=== PATIENT | male | born 1950 | race Caucasian/White ===

== ENCOUNTER → 2020-07-24 00:01 | Outpatient (BNVA) | payer MEDICARE, MEDICAID, SELFPAY | PROVIDERS: Family Provider Nurse Practitioner Family; PCP Nurse Practitioner Family; Visit Provider Registered Nurse | DX: J01.10 Acute frontal sinusitis, unspecified (principal); R53.82 Chronic fatigue, unspecified; E16.2 Hypoglycemia, unspecified | CPT/HCPCS: 80053; 80061; 82947; 83036 ==

== ENCOUNTER → 2021-03-22 16:38 | Outpatient (BNVA) | payer MEDICARE, MEDICAID, SELFPAY | PROVIDERS: Family Provider Nurse Practitioner Family; PCP Nurse Practitioner Family; Visit Provider Registered Nurse | DX: R63.0 Anorexia (principal); F41.9 Anxiety disorder, unspecified; E53.8 Deficiency of other specified B group vitamins; E55.9 Vitamin D deficiency, unspecified; K59.00 Constipation, unspecified | CPT/HCPCS: 80053; 82306; 82607; 84443; 85025 ==

== ENCOUNTER → 2021-11-05 09:57 | Outpatient (BNVA) | payer MEDICARE, MEDICAID, SELFPAY | PROVIDERS: Family Provider Nurse Practitioner Family; PCP Registered Nurse; Visit Provider Nurse Practitioner Family | DX: F41.9 Anxiety disorder, unspecified (principal); R53.83 Other fatigue | CPT/HCPCS: 80053; 84439; 84443; 85025 ==

== ENCOUNTER 2022-05-12 13:32 | Outpatient (CLI) | payer MEDICARE, MEDICAID, SELFPAY ==
--- NOTE | 2022-05-12 14:07 | USCV_ITS ---
Jonah Hutton Age: 72 Gender: M : 1950 Exam Date: 05/12/2022 14:30 Ordering Phys: Becca Rollins MD Technologist: Bradford Abraham [place] [facility] [place]: chronic ulcer Risk Factors: Previous Vascular Surgery: RIGHT LEFT BP: 164.0 / 102.00 BP: 173.0/ 83.00 0 0 Waveform Velocity (cm/s) Velocity (cm/s) Waveform Triphasic 74.2 Iliac Prox Triphasic 71.8 Iliac Mid Triphasic 84.9 Iliac Distal Triphasic [employer] 56.1 Triphasic 100.8 SFA Prox Biphasic 70.3 SFA Mid Biphasic 76.2 SFA Dist Biphasic 60.5 POP Biphasic 73.8 DIRECTOR [employer] Biphasic 51.9 DPA 1.0 ДМИТРИЙ FINDINGS Resting ДМИТРИЙ of 1.0 on the right side Normal Doppler flow velocities Biphasic Doppler waveforms in the mid to distal SFA, popliteal and infrapopliteal vessels CONCLUSIONS Normal resting ДМИТРИЙ with near normal arterial Doppler waveforms on the right side. No significant arterial obstruction, based on the above findings Dr Carter Mcdonald MD FACC (Electronically Signed) Final Date: 12 May 2022 19:42 S
== END 2022-05-12 13:33 | disposition home or self-care (01) ==
LOC: RAD 13:40
PROVIDERS: PCP Registered Nurse; Visit Provider Family Medicine
DX: L97.512 Non-pressure chronic ulcer of other part of right foot with fat layer exposed (principal)
CPT/HCPCS: 93926

== ENCOUNTER → 2022-08-02 09:46 | Outpatient (BNVA) | payer MEDICARE, MEDICAID, SELFPAY | PROVIDERS: PCP Registered Nurse; Visit Provider Nurse Practitioner Family | DX: Z98.890 Other specified postprocedural states (principal); L97.509 Non-pressure chronic ulcer of other part of unspecified foot with unspecified severity | CPT/HCPCS: 73630 ==

== ENCOUNTER → 2022-08-10 10:32 | Outpatient (BNVA) | payer MEDICARE, MEDICAID, SELFPAY | PROVIDERS: PCP Registered Nurse; Visit Provider Podiatrist Foot & Ankle Surgery | DX: T84.84XA Pain due to internal orthopedic prosthetic devices, implants and grafts, initial encounter (principal); Y79.2 Prosthetic and other implants, materials and accessory orthopedic devices associated with adverse incidents; L97.512 Non-pressure chronic ulcer of other part of right foot with fat layer exposed | CPT/HCPCS: 99204 ==

== ENCOUNTER → 2022-08-31 07:29 | Outpatient (BNVA) | payer MEDICARE, MEDICAID, SELFPAY | PROVIDERS: PCP Registered Nurse; Visit Provider Podiatrist Foot & Ankle Surgery | DX: T84.84XA Pain due to internal orthopedic prosthetic devices, implants and grafts, initial encounter (principal); L97.512 Non-pressure chronic ulcer of other part of right foot with fat layer exposed; Y79.2 Prosthetic and other implants, materials and accessory orthopedic devices associated with adverse incidents | CPT/HCPCS: 99213 ==

== ENCOUNTER 2022-09-09 08:19 | Day surgery (SDC) | payer MEDICARE, MEDICAID, SELFPAY ==
[2022-09-08 11:55] VITALS: BMI 24.4
[2022-09-09] VITALS (7 sets, daily range): BP systolic 119–160; BP diastolic 75–96; PULSE 57–62; RESP 10–18; TEMP 36.1–36.6; O2SAT 96–98
[2022-09-09] MEDS: sodium chloride 0.9% 1,000 ML 30 ML IV (09:38)
--- NOTE | 2022-09-09 10:10 | P.ANESASSM_ITS ---
Pre-Anesthetic Assessment Height/Weight: Height 1.83 m Weight 81.647 kg Temp Pulse Resp BP Pulse Ox O2 Del Method 97.5 F L 62 18 151/92 98 Room Air 09/09/22 09:13 09/09/22 09:13 09/09/22 09:13 09/09/22 09:13 09/09/22 09:13 09/09/22 09:17 Preop Diagnosis: Painful hardware right foot Operation Date: 09/09/22 11:20 Proposed Procedures p Deep hardware removal right foot 40710 X2 T84.84XA(Right) - Schuyler Cerna DPM Familial anesthetic complications: none Was Beta Vy taken within 24 hours: Yes Was Clonidine taken within 24 hours: N/A Last intake: Intake Last Liquid Date 09/08/22 Last Liquid Time 21:00 Last Solid Date 09/08/22 Last Solid Time 21:00 Social No alcohol and No tobacco (h/o smoking) Exam alert, oriented x 3, clear to auscultation bilaterally and regular rate & rhythm Airway Submandibular: within normal limits Cervical ROM: within normal limits Mallampati: Class II Dentition: chipped GI Gastroesophageal Reflux Disease [facility] [place] Osteoarthritis/DJD Neuropsych Anxiety and Depression TBI Anesthetic Plan ASA status: 2 Anesthesia: Choice Medications/Allergies Home Medications Medication Instructions Recorded Confirmed Last Taken Type clonazepam 0.25 mg disintegrating 0.25 mg PO Q8H PRN anxiety 30 days 04/04/22 09/09/22 09/08/22 Rx tablet #30 tabs mupirocin 2 % topical ointment 1 applic topical BID 2 weeks #22 08/10/22 09/08/22 Unknown Rx grams magnesium citrate 150 ml PO DAILY PRN constipation 08/26/22 09/08/22 Unknown Rx #296 mL diclofenac sodium 1 % topical gel 2 g topical QID PRN Pain 09/08/22 09/08/22 Unknown History (Voltaren Arthritis Pain) metoprolol tartrate 50 mg tablet 50 mg PO DAILY 09/08/22 09/08/22 09/08/22 08:00 History Allergies Allergy/AdvReac Type Severity Reaction Status Date / Time No Known Allergies Allergy Verified 08/31/22 07:51 Current Medications Generic Name Dose Route Start Last Admin Trade Name Freq PRN Reason Stop Dose Admin Sodium Chloride 1,000 mls @ 30 mls/hr 09/09/22 09:15 09/09/22 09:38 Sodium Chloride 0.9% IV 09/10/22 09:14 30 mls/hr .Q24H ELIAN Administration PFSH Anesthesia Medical History Anxiety GERD (gastroesophageal reflux disease) Osteoarthritis (arthritis due to wear and tear of joints) Traumatic leg injury Surgical History H/O neck surgery Family History Mother CAD (coronary artery disease) Hypertension Diabetes Father Hypertension Diabetes Social History Smoking and tobacco status: never smoked Quit status (tobacco): has quit using tobacco Second hand smoke exposure: No Smoking risk assessment/counseling performed?: No Alcohol intake: never Desire information about alcohol rehabilitation?: No Counseling given: No Desire information about substance/drug rehabilitation?: No Counseling given: No Lives independently: Yes Marital status: single Current gender identity: Male Data Anesthesia Cardiac Studies: No Data to Display
--- NOTE | 2022-09-09 11:10 | W.PM.OPSUD ---
Surgery/Procedure H&P Update DATE OF PROCEDURE: September 09, 2022 DATE H&P PERFORMED: 08/31/22 CHANGES TO PREVIOUS DOCUMENTATION: none PREOP DIAGNOSIS: Painful hardware right foot PLANNED PROCEDURE: Operation Date: 09/09/22 11:20 Proposed Procedures p Deep hardware removal right foot 78988 X2 T84.84XA(Right) - Schuyler Cerna DPM
[2022-09-09] MEDS: ceFAZolin 2,000 MG in sodium chloride 0.9% (plus) 50 ML 100 MG IV (11:29)
--- NOTE | 2022-09-09 11:59 | SUR.OPER ---
1200 one screw left in right foot per dr. resendiz
--- NOTE | 2022-09-09 12:11 | P.OP_ITS ---
Operative Report Date of procedure: September 09, 2022 Pre-op diagnosis: Painful retained hardware right foot first ray. Painful retained hardware right foot second ray Post-op diagnosis: Same Post-op findings: Same Procedure done: Deep for removal right foot first ray. CPT code 78293 Deep hardware removal right foot second ray. CPT code 23458 Implants: 4-0 nylon Specimens removed/disposition: Plate and 5 screws removed from medial cuneiform and first metatarsal Plate and 4 screws removed from intermediate cuneiform and second metatarsal, separate incision Pathology: None Surgeon: None Histologic Technician: Lillian Estimated blood loss: 5 26 IV fluids: None Urine output: None Complications: None Brief History: No wounds at today's visit.? Tenting and palpable painful hardware.? Patient examined and evaluated, findings and treatment options were discussed with patient at length.? Due to diminished pedal pulse at the posterior tibial artery ankle-brachial indices were performed at today's visit along with wave forms, this was for baseline evaluation as well as preoperative planning.? Right ankle- brachial index is 1.15 and left ankle-brachial index is 1.08.? Right toe brachial index is 0.88 and left toe brachial index is 1.02.? Patient's ABIs and TBI's are normal.? Waveforms available and scanned in the patient's chart.? Patient is having pain associated with hardware of his right foot and a nonhealing wound also associate with hardware.? Is requesting hardware movable.? X-ray of the right foot taken 08/02/2022 shows bony healing at the right first and second rays.? Prominent hardware also visualized both at the first and second rays with backed out screws.? No fragmented or failed hardware appreciated.? I reviewed at length with the patient, the risks, potential complications, benefits, alternatives, expectations, and typical outcomes associated with the surgery. The risks and potential complications were explained in detail, including but not limited to infection, wound dehiscence or soft tissue complications, bleeding and hematoma, chronic edema, neuritis or nerve damage producing numbness or chronic pain, CRPS, failure to relieve pain or worsening pain, thick / painful / unsightly scar, limited motion / stiffness, malposition, delayed union, malunion, or nonunion, fracture, reaction to implants, anesthetic complications, venous thromboembolism, and deformity recurrence.? I discussed the notion of no regrets with the patient as it pertains to complications and outcomes. The patient seemed to understand the nature of the proposed care and required convalescence. They asked appropriate questions, answered to their satisfaction. They are aware no guarantees can be made as to a satisfactory outcome and they understand there may be other possible unforeseen complications or outcomes not listed here that will be treated accordingly if they arise. There were no written or implied guarantees given to the patient. They gave informed consent to proceed. Procedure: Under my sedation the patient was brought to the operating room and remained on the gurney in supine position. A timeout was performed. Anesthesia was then administered by the anesthesia service. Local anesthesia was injected by myself right ankle block utilizing 0.5% Marcaine plain this was a five-point block, total of 20 cc utilized. 10 cc of Exparel infiltrated at the dorsal and medial aspect of the right foot subcutaneously in a grid like fashion. Well-padded pneumatic tourniquet was applied to the right ankle. The right lower extremity was scrubbed, prepped and draped utilizing normal aseptic technique. Right foot was extenuated with an Esmarch bandage and the tourniquet was then inflated to 250 mmHg. Attention was directed to the dorsal medial aspect of the right foot where a linear longitudinal incision made over the dorsal medial aspect of the medial cuneiform and first metatarsal over the previous cicatrix. Hardware was noted to be proud and palpable and tenting skin at this area. Incision was carried through skin with a #15 blade with dissection carried down through subcutaneous tissue to the layer of hardware utilizing blunt and sharp technique. Care was taken to retract and preserve neurovascular and tendinous structures. All bleeders were ligated and cauterized as necessary. Total of 5 screws and 1 plate were removed from bone at the medial cuneiform and first metatarsal, all rough edges were smoothed with a hand rasp and the incision was irrigated with copious muscle sterile saline solution. Given the amount of fibrosing a single layer closure was deemed best and this was performed with 4-0 nylon. Attention was then directed to the dorsal right foot where at the level of the second metatarsal and intermediate cuneiform a another separate incision was performed linear and longitudinal in fashion with a #15 blade directly over palpable and prominent hardware of the second metatarsal and intermediate cuneiform this was performed through skin with a 15 blade and carried down through subcutaneous tissue to the layer of hardware, significant fibrosing was appreciated. Total of 4 screws and the plate was removed and passed from the operative field. An interfrag screw was not encountered and not deemed to be prominent or problematic and was left intact at the second metatarsal. The incision was irrigated with copious amounts of sterile saline solution and closed due to fibrosing in a single layer fashion with 4-0 nylon. Both incisions were then dressed with Adaptic, sterile 4 x 4's, Kerlix and Kirill wrap followed by application of a postop shoe to the right foot. Tourniquet was deflated and a prompt hyperemic response was noted to the distal digits of the right foot. Patient tolerated the procedure and anesthesia well and was transferred to the PACU with vital signs stable and vascular status intact. Following a period of postoperative monitoring he will be discharged home. We will reduce his activity, rest and elevate his right foot. Was given at home care instructions, schedule follow-up in my cell phone number to contact with any postoperative questions or concerns.
--- NOTE | 2022-09-09 12:13 | PC.NURSE ---
Pt arrived to PACU, awake, dressing to right foot C/D/I, right toes p/w/d, cap refill <3 seconds, able to wiggles toes.
--- NOTE | 2022-09-09 13:50 | ANE.PACU2 ---
Inpatient post-anesthesia follow up: Airway intact: Yes Vital signs: Temperature 97.8 F Pulse Rate 57 Respiratory Rate 16 Blood Pressure 155/79 Pulse Oximetry 97 Oxygen Delivery Me thod Room Air Oxygen Flow Rate Fraction of Inspir ed Oxygen Hydration adequate: Yes Nausea and vomiting: No Pain level: 1 Mental status: Baseline
== END 2022-09-09 13:15 | disposition home or self-care (01) ==
PROVIDERS: PCP Registered Nurse; Visit Provider Podiatrist Foot & Ankle Surgery
PROC: (CPT 20680; principal; 2022-09-09 11:10)
DX: T84.84XA Pain due to internal orthopedic prosthetic devices, implants and grafts, initial encounter (principal); Y79.2 Prosthetic and other implants, materials and accessory orthopedic devices associated with adverse incidents; L97.512 Non-pressure chronic ulcer of other part of right foot with fat layer exposed; K21.9 Gastro-esophageal reflux disease without esophagitis; M19.90 Unspecified osteoarthritis, unspecified site; F41.9 Anxiety disorder, unspecified; F32.A Depression, unspecified
CPT/HCPCS: 20680 ×2; C9290; J0690; J2250; J2704; J3010; J3490; J7030

== ENCOUNTER → 2022-09-22 07:22 | Outpatient (BNVA) | payer MEDICARE, MEDICAID, SELFPAY | PROVIDERS: PCP Registered Nurse; Visit Provider Podiatrist Foot & Ankle Surgery | DX: Z98.890 Other specified postprocedural states (principal); Z48.89 Encounter for other specified surgical aftercare; L97.512 Non-pressure chronic ulcer of other part of right foot with fat layer exposed | CPT/HCPCS: 99024 ==

== ENCOUNTER → 2022-10-07 10:41 | Outpatient (BNVA) | payer MEDICARE, MEDICAID, SELFPAY | PROVIDERS: PCP Registered Nurse; Visit Provider Podiatrist Foot & Ankle Surgery | DX: L97.512 Non-pressure chronic ulcer of other part of right foot with fat layer exposed (principal); Z98.890 Other specified postprocedural states | CPT/HCPCS: 99024 ==

== ENCOUNTER → 2022-10-26 11:38 | Outpatient (BNVA) | payer MEDICARE, MEDICAID, SELFPAY | PROVIDERS: PCP Registered Nurse; Visit Provider Registered Nurse | DX: I10 Essential (primary) hypertension (principal); R53.83 Other fatigue; E55.9 Vitamin D deficiency, unspecified; E78.5 Hyperlipidemia, unspecified; E53.8 Deficiency of other specified B group vitamins | CPT/HCPCS: 80053; 80061; 82306; 82607; 85025 ==

== ENCOUNTER → 2023-07-28 08:22 | Outpatient (BNVA) | payer MEDICARE, MEDICAID, SELFPAY | PROVIDERS: PCP Registered Nurse; Visit Provider Nurse Practitioner Family | DX: E16.2 Hypoglycemia, unspecified (principal); M47.892 Other spondylosis, cervical region | CPT/HCPCS: 80053; 83036; 84439; 84443; 85025 ==

== ENCOUNTER → 2023-08-02 08:20 | Outpatient (BNVA) | payer MEDICARE, MEDICAID, SELFPAY | PROVIDERS: PCP Registered Nurse; Visit Provider Nurse Practitioner Family | DX: E87.5 Hyperkalemia (principal) | CPT/HCPCS: 80053 ==

== ENCOUNTER → 2024-09-11 15:31 | Outpatient (BNVA) | payer MEDICARE, MEDICAID, SELFPAY | PROVIDERS: PCP Registered Nurse; Visit Provider Registered Nurse | DX: R53.82 Chronic fatigue, unspecified (principal) | CPT/HCPCS: 80053; 82306; 85025; 88305 ==

== ENCOUNTER → 2024-09-24 08:09 | Outpatient (BNVA) | payer MEDICARE, MEDICAID, SELFPAY | PROVIDERS: PCP Registered Nurse; Visit Provider Dermatology | DX: L82.1 Other seborrheic keratosis (principal); L57.8 Other skin changes due to chronic exposure to nonionizing radiation; C44.519 Basal cell carcinoma of skin of other part of trunk; D48.5 Neoplasm of uncertain behavior of skin | CPT/HCPCS: 11102; 12034; 17313; 99203 ==

== ENCOUNTER → 2024-10-08 10:45 | Outpatient (BNVA) | payer MEDICARE, MEDICAID, SELFPAY | PROVIDERS: PCP Registered Nurse; Visit Provider Dermatology | DX: D04.39 Carcinoma in situ of skin of other parts of face (principal) | CPT/HCPCS: 17280 ==

== ENCOUNTER → 2024-11-12 14:59 | Outpatient (BNVA) | payer MEDICARE, MEDICAID, SELFPAY | PROVIDERS: PCP Registered Nurse; Visit Provider Dermatology | DX: D04.39 Carcinoma in situ of skin of other parts of face (principal) | CPT/HCPCS: 99213 ==

== ENCOUNTER 2025-01-17 08:26 | Outpatient (CLI) | payer MEDICARE, MEDICAID, SELFPAY ==
--- NOTE | 2025-01-17 09:00 | CT_ITS ---
WS: [id number] CT ABDOMEN AND PELVIS NONCONTRAST HISTORY: K57.92 - Diverticulitis of intestine, part unspecified, w... TECHNIQUE: Imaging performed through the abdomen and pelvis. Coronal and sagittal reformats are submitted. All CT scans at [facility] use at least one of these dose optimization techniques: automated exposure control; mA and/or kV adjustment per patient size (includes targeted exams where dose is matched to clinical indication); or iterative reconstruction. DLP: 365.46 mGy.cm COMPARISON: None available. Lower thorax: Benign granuloma at the RIGHT lung base. Chronic emphysematous changes. Heart is normal size. No pericardial effusion. No hiatal hernia. Liver: Normal size liver. No mass or bile duct dilatation. Gallbladder: Gallbladder is normally distended. There are several small stones in the gallbladder neck. No pericholecystic fluid. Pancreas: Normal size and attenuation. Normal pancreatic duct. No pancreatitis or mass. Spleen: Normal. Adrenal glands: Normal. No mass. Right kidney: Normal size kidney with no mass or hydronephrosis. Left kidney: Normal size kidney with no mass or hydronephrosis. Aorta: Mild atherosclerosis. No free fluid, intraperitoneal air or significant lymphadenopathy. GI tract: Stomach is slightly distended with fluid and air. Stomach is elongated but no obstruction. No small bowel obstruction. Normal appendix. Mild constipation. There is mild sigmoid diverticulosis but no evidence for acute diverticulitis. No obstruction or colitis. Abdominal wall: Negative. No hernia. Pelvis: No free fluid. No adenopathy. Osseous structures: LEFT femoral head osteonecrosis. Mild anterior wedging of L3 and L4 without retropulsion. CT/CT abdomen pelvis wo con [id number] IMPRESSION: 1. No acute abdominal or pelvic abnormalities. 2. Mild sigmoid diverticulosis without evidence for acute diverticulitis. 3. There is no free fluid or abscess. 4. Normal appendix. 5. No renal obstruction. 6. Cholelithiasis. Several small gallstones are noted in the gallbladder neck. No adjacent inflammation. 7. LEFT femoral head osteonecrosis. 8. Prior anterior compression fractures L3 and L4.
== END 2025-01-17 08:27 | disposition home or self-care (01) ==
LOC: RAD 08:31
PROVIDERS: PCP Registered Nurse; Visit Provider Registered Nurse
DX: K57.92 Diverticulitis of intestine, part unspecified, without perforation or abscess without bleeding (principal); K57.30 Diverticulosis of large intestine without perforation or abscess without bleeding; K80.20 Calculus of gallbladder without cholecystitis without obstruction; M87.9 Osteonecrosis, unspecified
CPT/HCPCS: 74176

== ENCOUNTER 2025-01-21 12:25 | Emergency (ER) | payer MEDICARE, MEDICAID, SELFPAY ==
[2025-01-21 12:43] VITALS: BP 158/80; PULSE 62; RESP 16; TEMP 36.5; O2SAT 99; BMI 23.4
[2025-01-21 13:29] LABS: Hematocrit 47.9 % (37-53); Hemoglobin 15.30 g/dL (11.27-16.99); Mean Corpuscular HGB Conc 31.9 g/dL (30-55); Mean Corpuscular Hemoglobin 30.2 pg (27-33); Mean Corpuscular Volume 94.5 fl (82-101); Nucleated Red Blood Cells % 0 %; Platelet Count 237 10^3/cmm (157-399); Red Blood Count 5.07 10^6/uL (3.85-5.65); White Blood Count 7.41 10^3/uL (3.29-11.43)
[2025-01-21 13:47] LABS: Alanine Aminotransferase 34 U/L (0-41); Albumin Level 4.1 g/dL (3.5-5.2); Alkaline Phosphatase 103 U/L (40-130); Anion Gap 13.6 (5-19); Aspartate Amino Transferase 32 U/L (0-40); Blood Urea Nitrogen 14 mg/dL (8-23); Calcium 9.0 mg/dL (8.5-10.5); Carbon Dioxide 25 mmol/L (22-29); Chloride 103 mmol/L (98-107); Creatinine Clr Calc Pharmacy 81.7977; Globulin 2.7 g/dL (1.3-4.6); Glucose 181 mg/dL (65-115); Lipase 80 U/L (13-60); Osmolality Calculated 289 mOsm/kg (285-295); Potassium 4.6 mmol/L (3.5-5.1); Sodium 137 mmol/L (136-145); Total Protein 6.8 g/dL (6.6-8.7)
--- NOTE | 2025-01-21 14:05 | ED_ITS ---
HPI - Abdominal Pain 2 General: Chief Complaint: Abdominal Pain Stated Complaint: ab pain Time Seen by Provider: 01/21/25 13:08 History of Present Illness: 74-year-old male presents emergency room chronic abdominal pain. He recently had some imaging done and was told he had gallstones he supposed to be seeing Dr. Fuentes patient has worsening right upper quadrant abdominal pain. No vomiting or diarrhea. Associated Symptoms: Denies chills, dysuria and fever(s) Related Data Home Medications ?Medication ?Instructions ?Recorded ?Confirmed diclofenac sodium 1 % topical gel 2 g topical QID PRN Pain 09/08/22 01/16/25 (Voltaren Arthritis Pain) Previous Rx's ?Medication ?Instructions ?Recorded magnesium citrate 150 ml PO DAILY PRN constipa tion 08/26/22 #296 mL dicyclomine 20 mg tablet 20 mg PO BID PRN abdominal p ain 10 10/04/24 days #20 tabs clonazepam 0.25 mg disintegrating 0.25 mg PO Q8H PRN a nxiety 30 days 01/14/25 tablet #30 tabs losartan 25 mg tablet 25 mg PO DAILY 90 days #90 t abs 01/16/25 promethazine 25 mg tablet 25 mg PO BID PRN nausea and 01/16/25 vomiting 5 days #10 tabs pantoprazole 40 mg tablet,delayed 40 mg PO BID #40 tab s 01/21/25 release Allergies Allergy/AdvReac Type Severity Reaction Status Date / Time No Known Allergies Allergy Verified 01/16/25 14:30 Review of Systems 2 Const: Denies: fever(s) or chills Card: Denies: chest pain Resp: Denies: dyspnea GI: Denies: abdominal pain : Denies: dysuria, urinary frequency or urinary urgency Musc: Denies: neck pain or back pain Skin/Breast: Denies: rash PFSH ED 2 PFSH: Medical History Traumatic leg injury GERD (gastroesophageal reflux disease) Anxiety Osteoarthritis (arthritis due to wear and tear of joints) Surgical History H/O neck surgery Family History Mother CAD (coronary artery disease) Hypertension Diabetes Father Hypertension Diabetes Social History Smoking and tobacco/nicotine status: never used tobacco/nicotine Quit status (tobacco/nicotine): has quit using Second hand smoke exposure: No Alcohol intake: never Substance/Drug Use: never Lives independently: Yes Marital status: single Do you think of yourself as: Straight/Heterosexual Current gender identity: Male Physical Exam 2 Const: GENERAL APPEARANCE: cooperative ORIENTATION/CONSCIOUSNESS: Yes awake, Yes oriented to person, Yes oriented to place and Yes oriented to time HENMT: COMMON NORMALS: normocephalic, atraumatic and hearing grossly normal bilaterally HEAD & SCALP: normocephalic and atraumatic Resp: COMMON NORMALS: normal respiratory effort, No retractions, No use of accessory muscles and clear to auscultation bilaterally AUSCULTATION: clear to auscultation bilaterally Cardio: COMMON NORMALS: regular rate, regular rhythm and No murmurs present (Cardio) RATE: regular rate RHYTHM: regular rhythm GI: COMMON NORMALS: Soft to palpation and No hepatosplenomegaly present A USCULTATION: Yes normoactive bowel sounds PALPATION: Yes Soft to palpation, No Tenderness to palpation present (GI), No Guarding due to palpation present (GI) and Yes No hepatosplenomegaly present Extremity: COMMON NORMALS: normal to inspection, capillary refill normal, no clubbing, cyanosis or edema, no calf tenderness and no pedal edema Neuro: SENSORIUM/ORIENTATION: Yes oriented to person, Yes oriented to place and Yes oriented to time Skin: COMMON NORMALS: no rashes or lesions noted GENERAL SKIN EXAM: no rashes or lesions noted Course 2 Vital Signs: Vital signs: Vital Signs Temperature 97.7 F 01/21/25 12:43 Pulse Rate 57 L 01/21/25 16:00 Respiratory Rate 16 01/21/25 12:43 Blood Pressure 182/108 01/21/25 16:00 Pulse Oximetry 98 01/21/25 16:00 Oxygen Delivery Me thod Room Air 01/21/25 16:00 MDM - Abdominal Pain Medical Decision Making Ultrasound of the gallbladder shows no dilation of the common bile duct there is no hydrops or wall thickening. CT abdomen does not show any other abnormality lipase is mildly elevated but the rest of his labs are normal liver functions were normal. White count normal. He is not having any dysuria urgency or frequency and his urine is normal as well. He does have some glucose in his urine. Will discharge home change from omeprazole to pantoprazole. Have him follow-up with Dr. Fuentes as previously scheduled Medical Records I reviewed the patient's medical records. Lab Data I reviewed the patient's lab results. 01/21/25 13:06 01/21/25 13:06 Labs/Radiology: Radiology Impressions Gallbladder Ultrasound 01/21/25 14:08 IMPRESSION: 1. Slightly contracted gallbladder. No stones identified by ultrasound. Stones were identified on a recent CT of 01/17/2025 in the gallbladder neck. 2. Normal common bile duct. Abdomen/Pelvis CT 01/21/25 14:09 IMPRESSION: 1. Unchanged mild compression deformities L3 and L4 vertebral bodies. Uncertain exact age. 2. Unchanged indeterminate 1.7 cm by 1.6 cm by 1.8 cm right adrenal nodule. Consider evaluating this further with multiphase CT or contrast MRI. 3. Unchanged 5 mm low-density lesion in the right lobe of the liver. Probably a cyst, but too small to accurately characterize. Consider a follow-up CT in 6 months to ensure stability of this likely benign finding. 4. No other acute findings. 5. Additional details as above. Unchanged. Laboratory Results WBC 7.41 10^3/uL (3.29-11.43) 01/21/25 13:06 RBC 5.07 10^6/uL (3.85-5.65) 01/21/25 13:06 Hgb 15.30 g/dL (11.27-16.99) 01/21/25 13:06 Hct 47.9 % (37-53) 01/21/25 13:06 MCV 94.5 fl (82-101) 01/21/25 13:06 MCH 30.2 pg (27-33) 01/21/25 13:06 MCHC 31.9 g/dL (30-55) 01/21/25 13:06 RDW 13.9 % (12.1-15.1) 01/21/25 13:06 Plt Count 237 10^3/cmm (157-399) 01/21/25 13:06 MPV 8.8 fL (7.4-10.4) 01/21/25 13:06 Neut % (Auto) 53.3 % 01/21/25 13:06 Lymph % (Auto) 32.5 % 01/21/25 13:06 Gage % (Auto) 8.9 % 01/21/25 13:06 Eos % (Auto) 4.2 % 01/21/25 13:06 Baso % (Auto) 0.7 % 01/21/25 13:06 Neut # (Auto) 3.95 10^3/uL (1.8-7.7) 01/21/25 13:06 Lymph # (Auto) 2.4 10^3/uL (0.8-4.8) 01/21/25 13:06 Gage # (Auto) 0.7 10^3/uL (0.2-0.9) 01/21/25 13:06 Eos # (Auto) 0.3 10^3/uL (0.0-0.8) 01/21/25 13:06 Baso # (Auto) 0.1 10^3/uL (0.0-0.1) 01/21/25 13:06 Nucleated RBC % (auto) 0 % 01/21/25 13:06 Nucleated RBCs # 0.0 /100WBC 01/21/25 13:06 Sodium 137 mmol/L (136-145) 01/21/25 13:06 Potassium 4.6 mmol/L (3.5-5.1) 01/21/25 13:06 Chloride 103 mmol/L (98-107) 01/21/25 13:06 Carbon Dioxide 25 mmol/L (22-29) 01/21/25 13:06 Anion Gap 13.6 (5-19) 01/21/25 13:06 BUN 14 mg/dL (8-23) 01/21/25 13:06 Creatinine 0.9 mg/dL (0.7-1.2) 01/21/25 13:06 GFR Calculation Not Reportable 01/21/25 13:06 Glucose 181 mg/dL (65-115) H 01/21/25 13:06 Calculated Osmolality 289 mOsm/kg (285-295) 01/21/25 13:06 Calcium 9.0 mg/dL (8.5-10.5) 01/21/25 13:06 Total Bilirubin 0.9 mg/dL (0.15-1.2) 01/21/25 13:06 AST 32 U/L (0-40) 01/21/25 13:06 ALT 34 U/L (0-41) 01/21/25 13:06 Alkaline Phosphatase 103 U/L (40-130) 01/21/25 13:06 Total Protein 6.8 g/dL (6.6-8.7) 01/21/25 13:06 Albumin 4.1 g/dL (3.5-5.2) 01/21/25 13:06 Globulin 2.7 g/dL (1.3-4.6) 01/21/25 13:06 Lipase 80 U/L (13-60) H 01/21/25 13:06 Urine Color Yellow (Yellow) 01/21/25 13:57 Urine Appearance Clear (CLEAR) 01/21/25 13:57 Urine pH 5.0 (5-7) 01/21/25 13:57 Ur Specific [place] 1.024 (1.005-1.030) 01/21/25 13:57 Urine Protein Negative (Negative) 01/21/25 13:57 Urine Glucose (UA) 2+ (Normal) H 01/21/25 13:57 Urine Ketones Trace (Negative) 01/21/25 13:57 Urine Blood Negative (Negative) 01/21/25 13:57 Urine Nitrate Negative (Negative) 01/21/25 13:57 Urine Bilirubin Negative (Negative) 01/21/25 13:57 Urine Urobilinogen 0.2 mg/dL (Negative) 01/21/25 13:57 Ur Leukocyte Esterase Negative (Negative) 01/21/25 13:57 Urine RBC 0-2 /hpf (0-2) 01/21/25 13:57 Urine WBC 0-5 /hpf (0-5) 01/21/25 13:57 Ur Squamous Epith Cells 0-5 /hpf (0-5) 01/21/25 13:57 Amorphous Sediment Not Reportable 01/21/25 13:57 Urine Bacteria None seen /hpf (NONE) 01/21/25 13:57 Hyaline Casts 0-4 /lpf H 01/21/25 13:57 All radiology interpretation(s) finalized by discharge Discharge Plan Discharge Patient Disposition: Home Clinical Impression: Abdominal pain, Asymptomatic cholelithiasis Condition: Stable Prescriptions: New pantoprazole 40 mg tablet,delayed release (DR/EC) 40 mg PO BID Qty: 40 0RF Rx Instructions: 1 p.o. twice daily x 10 days then 1 p.o. daily Discontinued omeprazole 20 mg capsule,delayed release(DR/EC) 20 mg PO DAILY 90 Days Qty: 90 0RF No Action losartan 25 mg tablet 25 mg PO DAILY 90 Days Qty: 90 0RF Rx Instructions: increased to 2 pills on 01/16/25 promethazine 25 mg tablet 25 mg PO BID PRN (Reason: nausea and vomiting) 5 Days Qty: 10 0RF magnesium citrate Solution 150 ml PO DAILY PRN (Reason: constipation) Qty: 296 3RF Rx Instructions: 4 bottles dicyclomine 20 mg tablet 20 mg PO BID PRN (Reason: abdominal pain) 10 Days Qty: 20 0RF clonazepam 0.25 mg tablet,disintegrating 0.25 mg PO Q8H PRN (Reason: anxiety) 30 Days Qty: 30 2RF Voltaren Arthritis Pain 1 % gel 2 g topical QID PRN (Reason: Pain) Rx Instructions: apply to area of knee pain Discharge Orders: Discharge ED (Routine); Ordered 01/21/25 Ordered By: Francisco Ibarra Referrals: Zelalem Kincaid FNP [Primary Care Provider, Family Practice] Patient Instructions: Abdominal Pain (ED), Opioid Safety, Pain Management, Patient Portal & Rustam Instructions Activity Restrictions/Additional Instructions: Thank you for choosing [facility] for your healthcare needs today. It is very important that you follow up as instructed or that you return to the Emergency Department should you have concerns or if your condition changes or worsens in any way. You are seen emergency room with complaint of abdominal pain CT your abdomen is unremarkable ultrasound shows a gallstones there is no evidence of acute cholecystitis your laboratory tests are unremarkable urine is also normal. Your lipase was slightly elevated but the CT did not show any evidence of acute pancreatitis. Likely change from omeprazole to pantoprazole clear liquid diet 24 to 48 hours advance as tolerated follow-up with Dr. Fuentes as previously scheduled Print Language: Filipino Coding Level of Care Code ED Quill Winder for Dinesh Raymundo
--- NOTE | 2025-01-21 14:08 | US_ITS ---
WS: [id number] RIGHT UPPER QUADRANT ULTRASOUND HISTORY: Abdominal pain history of cholelithiasis COMPARISON: CT 01/21/2025 and 01/17/2025 Liver: 14.9 cm in length. Limited due to bowel gas. Portal Vein: Normal hepatopetal flow with monophasic waveform. Gallbladder: Slightly contracted. No stones are identified in the gallbladder by ultrasound. Stones were identified in the gallbladder neck as noted on a recent CT. No pericholecystic fluid. CBD: 0.4 cm Pancreas: Obscured. Right kidney: 10.6 cm in length. Normal size and echogenicity. No hydronephrosis or mass. Aorta and IVC: Unremarkable abdominal aorta and IVC. No ascites. US/US gall bladder [id number] IMPRESSION: 1. Slightly contracted gallbladder. No stones identified by ultrasound. Stones were identified on a recent CT of 01/17/2025 in the gallbladder neck. 2. Normal common bile duct.
--- NOTE | 2025-01-21 14:09 | CTR_ITS ---
PROCEDURE INFORMATION: Exam: CT Abdomen And Pelvis With Contrast Exam date and time: 01/21/2025 3:05 PM Age: 74 years old Clinical indication: Abdominal pain; Generalized; Additional info: Abd pain TECHNIQUE: Imaging protocol: Computed tomography of the abdomen and pelvis with contrast. Radiation optimization: All CT scans at this facility use at least one of these dose optimization techniques: automated exposure control; mA and/or kV adjustment per patient size (includes targeted exams where dose is matched to clinical indication); or iterative reconstruction. Contrast material: OMNIPAQUE 350; Contrast volume: 100 ml; Contrast route: INTRAVENOUS (IV); COMPARISON: CT abdomen pelvis wo con [id number] 01/17/2025 8:52 AM RADIATION DOSE METRICS: Total DLP (mGy-cm): 515.43 FINDINGS: Lungs: Unchanged small amount of scarring in the lung bases. Liver: Unchanged 5 mm low-density lesion in the right lobe of the liver. Otherwise, unremarkable liver. Gallbladder and biliary ducts: A few unchanged small gallstones in the gallbladder. Otherwise, unremarkable. Pancreas: Normal. No ductal dilation. Spleen: Normal. No splenomegaly. Adrenal glands: Unchanged indeterminate 1.7 cm by 1.6 cm by 1.8 cm right adrenal nodule. Otherwise, unremarkable adrenal glands. Kidneys and ureters: A few small unchanged bilateral renal cysts need no follow-up. Otherwise, unremarkable. Stomach and bowel: Unremarkable. No obstruction. No mucosal thickening. Appendix: No evidence of appendicitis. Intraperitoneal space: Unremarkable. No free air. No significant fluid collection. Vasculature: Unremarkable. No abdominal aortic aneurysm. Lymph nodes: Unremarkable. No enlarged lymph nodes. Urinary bladder: Unremarkable. Reproductive: Unchanged enlarged prostate gland measuring 6 cm by 4.8 cm by 4.3 cm. Otherwise, unremarkable. Bones/joints: Unchanged mild scoliosis and multilevel spondylosis. Unchanged mild compression deformities L3 and L4 vertebral bodies. Unchanged avascular necrosis left femoral head. Otherwise, unremarkable. Soft tissues: Unremarkable visualized body wall. Otherwise, unremarkable soft tissues. CT/CT abdomen pelvis w con* [id number] IMPRESSION: 1. Unchanged mild compression deformities L3 and L4 vertebral bodies. Uncertain exact age. 2. Unchanged indeterminate 1.7 cm by 1.6 cm by 1.8 cm right adrenal nodule. Consider evaluating this further with multiphase CT or contrast MRI. 3. Unchanged 5 mm low-density lesion in the right lobe of the liver. Probably a cyst, but too small to accurately characterize. Consider a follow-up CT in 6 months to ensure stability of this likely benign finding. 4. No other acute findings. 5. Additional details as above. Unchanged.
[2025-01-21 14:14] LABS: Glucose Urine UA 2+ (Normal); Nitrate Urine Negative (Negative); Specific Gravity, Urine 1.024 (1.005-1.030)
[2025-01-21 14:19] LABS: Add Urine Microscopic? YES
[2025-01-21 14:45] VITALS: BP 163/85; PULSE 58; O2SAT 99
[2025-01-21] MEDS: iohexol 350 mg/mL 500 mL Btl (per mL) IV (15:07)
[2025-01-21 16:00] VITALS: BP 182/108; PULSE 57; O2SAT 98
[2025-01-21 17:13] VITALS: BP 165/101; PULSE 57; O2SAT 100
== END 2025-01-21 17:14 | disposition home or self-care (01) ==
PROVIDERS: Physician Assistant; Emergency Provider Family Medicine; PCP Registered Nurse
DX: R10.9 Unspecified abdominal pain (principal); K80.80 Other cholelithiasis without obstruction
CPT/HCPCS: 36415; 74177; 76705; 80053; 81001; 83690; 85025; 99285

== ENCOUNTER → 2025-02-28 07:59 | Outpatient (BNVA) | payer MEDICARE, MEDICAID, SELFPAY | PROVIDERS: PCP Registered Nurse; Visit Provider Dermatology | DX: L72.0 Epidermal cyst (principal); D22.39 Melanocytic nevi of other parts of face; L82.1 Other seborrheic keratosis; L57.8 Other skin changes due to chronic exposure to nonionizing radiation; Z85.828 Personal history of other malignant neoplasm of skin | CPT/HCPCS: 99213 ==